=== PATIENT | female | born 1970 | race Caucasian/White ===

== ENCOUNTER → 2016-09-02 | Outpatient (CLI) | payer BC | LOC: OD 16:16 | PROVIDERS: ATTEND Physician Assistant | DX: R06.2 Wheezing (principal); I51.7 Cardiomegaly | CPT/HCPCS: 71020 ==

== ENCOUNTER → 2016-11-01 | Outpatient (CLI) | payer BC ==
--- NOTE | 2016-11-02 17:27 | XCELERA REPORT ---
[address] [address] Transthoracic Echocardiogram Report Name: MARIELENA RIBEIRO Age: 46 yrs Gender: Female : 1970 Patient Status: Outpatient Patient Location: Study Date: 11/01/2016 03:16 PM Height: 67 in Weight: 323 lb BSA: 2.5 m2 Procedure: A two-dimensional transthoracic echocardiogram with color flow and Doppler was performed. The study was technically difficult with many images being suboptimal in quality. Reason For Study: ABN BODY STRUCTURE R93.8 / ABNORMAL CHEST X-RAY History: ABN BODY STRUCTURE R93.8 / ABNORMAL CHEST X-RAY. Ordering Physician: YOVANY CABALLERO Performed By: Elvin Hidalgo Interpretation Summary The left ventricle is normal in size. There is mild concentric left ventricular hypertrophy. Left ventricular systolic function is low normal. LV EF is 55% Doppler measurements suggest normal left ventricular diastolic function The left ventricular wall motion is normal. There is no thrombus. The left atrial size is normal. There is no evidence of mitral valve prolapse. There is no mitral valve stenosis. There is a trace amount of mitral regurgitation Visually no .No AR. There is a trace amount of tricuspid regurgitation Right ventricular systolic pressure is normal. RVSP is 23 mm of Hg , wwith RA mean of 5. There is no pericardial effusion. MMode/2D Measurements \T\ Calculations RVDd: 2.8 cm LVIDd: 4.8 cm FS: 26.9 % Ao root diam: 3.4 cm IVSd: 1.3 cm LVIDs: 3.5 cm EDV(Teich): 107.8 ml LVPWd: 1.3 cm ESV(Teich): 51.3 ml Ao root area: 8.9 cm2 EF(Teich): 52.4 % Doppler Measurements \T\ Calculations MV E max eren: MV dec slope: PA V2 max: TR max eren: 62.6 cm/sec 64.6 cm/sec 205.7 cm/sec MV A max eren: 271.9 cm/sec2 PA max PG: TR max P.1 cm/sec MV dec time: 1.7 mmHg 16.9 mmHg MV E/A: 1.2 0.23 sec RVSP(TR): 21.9 mmHg RAP systole: 5.0 mmHg Left Ventricle The left ventricle is normal in size. There is mild concentric left ventricular hypertrophy. Left ventricular systolic function is low normal. LV EF is 55%. Doppler measurements suggest normal left ventricular diastolic function. The left ventricular wall motion is normal. There is no thrombus. There is no ventricular septal defect visualized. Right Ventricle The right ventricle is normal in size and function. Atria The right atrium is normal. The left atrial size is normal. The interatrial septum is intact with no evidence for an atrial septal defect. Mitral Valve There is no evidence of mitral valve prolapse. There is no vegetation seen on the mitral valve. There is no mitral valve stenosis. There is a trace amount of mitral regurgitation. Aortic Valve There is no aortic valvular vegetation. Visually no .No AR. Tricuspid Valve There is no tricuspid stenosis. There is a trace amount of tricuspid regurgitation. Right ventricular systolic pressure is normal. RVSP is 23 mm of Hg , wwith RA mean of 5. Pulmonic Valve There is no pulmonic valvular stenosis. There is no pulmonic valvular regurgitation. Great Vessels The aortic root is normal size. Effusions There is no pericardial effusion. : YOVANY CABALLERO > Jovita Smalls
== END ==
LOC: SP 14:35
PROVIDERS: ATTEND Physician Assistant
DX: R93.8 Abnormal findings on diagnostic imaging of other specified body structures (principal)
CPT/HCPCS: 93306

== ENCOUNTER 2018-03-10 18:34 | Emergency (ER) | payer BC ==
--- NOTE | 2018-03-10 19:29 | ER Document Report ---
ED Medical Screen (RME) - General Chief Complaint: Urinary Frequency Stated Complaint: LEG/ARM PAIN Time Seen by Provider: 03/10/18 19:22 Notes: 47-year-old female patient reports 2-day history of urinary urgency and pelvic pressure. She also reports numbness and tingling in her hands and fingers for the past few weeks. She complains of pain in the right buttock and upper posterior thigh region for the past 6 months. She states wearing her plantars fasciitis splint on the left side and taking Advil for that pain seemed to help the buttock until the past week. Also using moist heat to the buttock area with the Advil was working but now it is not. She has not tried to see her primary care provider about this right buttock and posterior thigh complaint. She is known to have high blood pressure but does not take medication for this. I have greeted and performed a rapid initial assessment of this patient. A comprehensive ED assessment and evaluation of the patient, analysis of test results and completion of the medical decision making process will be conducted by additional ED providers. TRAVEL OUTSIDE OF THE [place] IN LAST 30 DAYS: No - Related Data Allergies/Adverse Reactions: No Known Allergies Allergy (Verified 02/22/15 16:52) Past Medical History - Social History Chew tobacco use (# tins/day): No Drug Abuse: None - Past Medical History Cardiac Medical History: Reports: Hx Hypertension - not on meds Endocrine Medical History: Reports: Hx Hypothyroidism Renal/ Medical History: Denies: Hx Peritoneal Dialysis Past Surgical History: Reports: Hx Cholecystectomy, Hx Tubal Ligation - Immunizations Immunizations up to date: No Hx Diphtheria, Pertussis, Tetanus Vaccination: Yes - 04/18/00 Physical Exam - Vital signs Vitals: Temp Pulse Resp BP Pulse Ox 98.0 F 108 H 18 156/106 H 99 03/10/18 18:39 03/10/18 18:39 03/10/18 18:39 03/10/18 18:39 03/10/18 18:39 Course - Vital Signs Vital signs: Temp Pulse Resp BP Pulse Ox 98.0 F 108 H 18 156/106 H 99 03/10/18 18:39 03/10/18 18:39 03/10/18 18:39 03/10/18 18:39 03/10/18 18:39 Doctor's Discharge - Discharge Referrals: YOVANY CABALLERO PA [Primary Care Provider] - Follow up as needed
[2018-03-10 20:28] LABS: APPEARANCE,URINE SLIGHTLY-CLOUDY; BILIRUBIN,URINE NEGATIVE (NEGATIVE); COLOR,URINE YELLOW; GLUCOSE, URINE NEGATIVE (NEGATIVE); KETONES,URINE NEGATIVE (NEGATIVE); LEUKOCYTE ESTERASE,URINE LARGE (NEGATIVE); NITRITE,URINE POSITIVE (NEGATIVE); PROTEIN,URINE NEGATIVE (NEGATIVE); URINE SPECIFIC GRAVITY 1.024
[2018-03-10] MEDS ORDERED: OXYCODONE-ACETAMINOPHEN 5-325 MG TABLET PO ONE (21:28)
[2018-03-10] MEDS ORDERED: PHENAZOPYRIDINE HCL 200 MG TABLET PO ONE (21:29)
[2018-03-10] MEDS ORDERED: CEPHALEXIN 500 MG CAPSULE PO ONE (21:29)
[2018-03-10] MEDS ORDERED: LIDOCAINE 5% (700 MG) TRANSDERMAL ADH..PATCH TP ONE (21:32)
--- NOTE | 2018-03-10 21:32 | ER Document Report ---
HPI - HPI Patient complains to provider of: Urinary symptoms, right buttock pain Time Seen by Provider: 03/10/18 19:22 Onset: Other - Urinary symptoms times 2 days, right buttock pain times 6 months Pain Level: 5 Context: Patient presents complaining of a 2-day history of urinary frequency, dysuria and urgency. Patient also reports right buttock tenderness that radiates to the right posterior thigh for the past 6 months that has recently started to worsen. Patient denies any injury. Patient denies any fever, nausea or vomiting. Patient denies any flank tenderness. Patient denies any weakness to extremities. Associated Symptoms: Other - Dysuria, urgency, right buttock tenderness. denies : Fever Exacerbated by: Movement Relieved by: Denies Similar symptoms previously: No Recently seen / treated by doctor: No - ROS ROS below otherwise negative: Yes Systems Reviewed and Negative: Yes All other systems reviewed and negative - CONSTITUTIONAL Constitutional: DENIES: Fever, Chills - NEURO Neurology: DENIES: Headache, Weakness - RESPIRATORY Respiratory: DENIES: Coughing - GASTROINTESTINAL Gastrointestinal: DENIES: Nausea - URINARY Urinary: REPORTS: Dysuria, Urgency, Frequency - REPRODUCTIVE Reproductive: DENIES: : - MUSCULOSKELETAL Musculoskeletal: REPORTS: Extremity pain - Right buttock, right posterior. DENIES: Back Pain - DERM Skin Color: Normal Skin Problems: None Past Medical History - General Information source: POA - Power of Shot Man - Social History Smoking Status: Never Smoker Chew tobacco use (# tins/day): No Drug Abuse: None Occupation: Teacher Lives with: Family Family History: Reviewed & Not Pertinent Patient has suicidal ideation: No Patient has homicidal ideation: No - Past Medical History Cardiac Medical History: Reports: Hx Hypertension Endocrine Medical History: Reports: Hx Hypothyroidism Renal/ Medical History: Denies: Hx Peritoneal Dialysis Past Surgical History: Reports: Hx Cholecystectomy, Hx Tubal Ligation - Immunizations Immunizations up to date: No Hx Diphtheria, Pertussis, Tetanus Vaccination: Yes - 04/18/00 Vertical Provider Document - CONSTITUTIONAL Agree With Documented VS: Yes Exam Limitations: No Limitations General Appearance: WD/WN, No Apparent Distress, Obese - Morbidly obese - INFECTION CONTROL TRAVEL OUTSIDE OF THE [place] IN LAST 30 DAYS: No - HEENT HEENT: Atraumatic, Normocephalic - NECK Neck: Normal Inspection, Supple - RESPIRATORY Respiratory: Breath Sounds Normal, No Respiratory Distress - CARDIOVASCULAR Cardiovascular: Regular Rate, Regular Rhythm - GI/ABDOMEN Gastrointestinal: Abdomen Soft - BACK Back: Abnormal Inspection - Right SI joint tenderness. negative: CVA Tenderness -Right, CVA Tenderness-Left Notes: No midline spinal tenderness, step-off or deformity - MUSCULOSKELETAL/EXTREMETIES Musculoskeletal/Extremeties: MAEW, FROM Notes: Normal gait - NEURO Level of Consciousness: Awake, Alert, Appropriate Motor/Sensory: No Motor Deficit, No Sensory Deficit Notes: Normal gait, no saddle anesthesia, no foot drop - DERM Integumentary: Warm, Dry, No Rash Course - Re-evaluation Re-evalutation: 03/10/18 21:30 Patient with UTI, no concern for pyelonephritis at this time. Patient without any CVA tenderness. She does have right SI joint tenderness on examination. The patient presents without signs of spinal cord compression, cauda equina syndrome, infection, aneurysm, or other serious etiology. The patient is neurologically intact. Given the extremely risk of these diagnoses further testing and evaluation for these possibilities does not appear to be indicated at this time. Patient has been instructed to return if the symptoms worsen or change in any way. - Vital Signs Vital signs: Temp Pulse Resp BP Pulse Ox 98.0 F 108 H 18 156/106 H 99 03/10/18 18:39 03/10/18 18:39 03/10/18 18:39 03/10/18 18:39 03/10/18 18:39 - Laboratory Laboratory results interpreted by me: 03/10/18 20:00 Urine Blood SMALL H Urine Nitrite POSITIVE H Urine Urobilinogen 2.0 H Ur Leukocyte Esterase LARGE H 03/10/18 21:30 Labs- Entire Visit 03/10/18 20:00 Urine Color YELLOW Urine Appearance SLIGHTLY-CLOUDY Urine pH 6.0 Ur Specific Raymond 1.024 Urine Protein NEGATIVE Urine Glucose (UA) NEGATIVE Urine Ketones NEGATIVE Urine Blood SMALL H Urine Nitrite POSITIVE H Urine Bilirubin NEGATIVE Urine Urobilinogen 2.0 H Ur Leukocyte Esterase LARGE H Urine WBC (Auto) 31 Urine RBC (Auto) 6 Urine Bacteria (Auto) 3+ Squamous Epi Cells Auto 10 Urine Mucus (Auto) OCC Urine Ascorbic Acid NEGATIVE Discharge - Discharge Clinical Impression: Sciatica Qualifiers: Laterality: right Qualified Code(s): M54.31 - Sciatica, right side UTI (urinary tract infection) Qualifiers: Urinary tract infection type: site unspecified Hematuria presence: with hematuria Qualified Code(s): N39.0 - Urinary tract infection, site not specified Condition: Stable Disposition: HOME, SELF-CARE Instructions: Cephalexin ([facility]), Oral Narcotic Medication ([facility]), Sciatica ([facility]) , Urinary Anesthetic Agent ([facility]), Urinary Tract Infection ([facility]) Additional Instructions: Return immediately for any new or worsening symptoms Followup with your primary care provider, call tomorrow to make a followup appointment Urine culture is pending, will call if you need any different treatment Prescriptions: Cephalexin Monohydrate [Keflex 500 mg Capsule] 500 mg PO Q6H 5 Days capsule Oxycodone HCl/Acetaminophen [Percocet 5-325 mg Tablet] 1 tab PO ASDIR PRN #15 tablet PRN Reason: Phenazopyridine HCl [Pyridium 200 mg Tablet] 200 mg PO TID #15 tablet Referrals: KATIE FRANCIS MD [Primary Care Provider] - 03/13/18
[2018-03-10 22:05] VITALS: BP 155/99
== END 2018-03-10 22:05 | disposition home or self-care (01) ==
LOC: ER 18:34
DX: M54.31 Sciatica, right side (principal); N39.0 Urinary tract infection, site not specified; R39.198 Other difficulties with micturition; R35.0 Frequency of micturition; R30.0 Dysuria; R39.15 Urgency of urination; M79.651 Pain in right thigh; I10 Essential (primary) hypertension
CPT/HCPCS: 99283; 87086; 87088; 81001; 87186; J3490

== ENCOUNTER → 2018-03-23 | Outpatient (CLI) | payer BC ==
--- NOTE | 2018-03-23 17:29 | RADIOLOGY REPORT (SQ) ---
EXAM DESCRIPTION: LUMBAR SPINE COMPLETE COMPLETED DATE/TIME: 03/23/2018 5:11 pm REASON FOR STUDY: LUMBAGO WITH SCIATICA, RIGHT SIDE M54.41 LUMBAGO WITH SCIATICA, RIGHT SIDE COMPARISON: Lumbar spine five views 05/20/2014 NUMBER OF VIEWS: Five views including obliques. TECHNIQUE: AP, lateral, oblique, and sacral radiographic images acquired of the lumbar spine. LIMITATIONS: None. FINDINGS: MINERALIZATION: Normal. SEGMENTATION: Normal. No transitional anatomy. ALIGNMENT: Normal. VERTEBRAE: Maintained height. No fracture or worrisome bone lesion. DISCS: Disc space loss of height at L4-5 and L5-S1 POSTERIOR ELEMENTS: Bilateral facet joint space narrowing and bony spurring at L4-5 and L5-S1. HARDWARE: None in the spine. Clips right upper quadrant post cholecystectomy PARASPINAL SOFT TISSUES: Normal. PELVIS: Not included in the field of view. SI joints are unremarkable OTHER: No other significant finding. IMPRESSION: Mild degenerative disc changes and facet arthropathy lower lumbar spine TECHNICAL DOCUMENTATION: JOB ID: [id number] [email or web address] All Rights Reserved Reading location - IP/workstation name: [email or web address]
== END ==
LOC: OD 16:56
PROVIDERS: ATTEND Physician Assistant
DX: M51.16 Intervertebral disc disorders with radiculopathy, lumbar region (principal)
CPT/HCPCS: 72110